=== PATIENT | female | born 1970 | race Caucasian/White ===

== ENCOUNTER 2016-09-03 15:28 | Emergency (ER) | payer SELFPAY ==
[~2016-09-03] VITALS: Ht 152.4 cm; Wt 63.6 kg
[2016-09-03 15:39] VITALS: BP 140/89
--- NOTE | 2016-09-03 15:52 | ED.ADGEN ---
Past History Past Medical History: No Pertinent History Smoking: Non-smoker Alcohol Use: None Drug Use: None Adult General Chief Complaint Chief Complaint Right trapezius pain [facility] HPI Patient is a 46 year old female who presents with 6 week history of pain involving the right trapezius and lateral neck after falling about 2 feet off of a deck landing on her buttocks. She's been receiving adjustments of the chiropractor. Pain sometimes radiates down the arm but she has no weakness numbness or tingling in the right arm or anywhere else for that matter. She does have some low-level low back pain it's been present for many many years and is not changed. Pain in the trapezius is described as mild to moderate dull sometimes cramping. She has been shortness of breath or abdominal pain. Review of Systems Review of Systems Constitutional: Denies fever or chills [] Eyes: Denies change in visual acuity, redness, or eye pain [] HENT: Denies nasal congestion or sore throat [] Respiratory: Denies cough or shortness of breath [] Cardiovascular: No additional information not addressed in HPI [] GI: Denies abdominal pain, nausea, vomiting, bloody stools or diarrhea [] : Denies dysuria or hematuria [] Musculoskeletal: Denies back pain or joint pain [] Integument: Denies rash or skin lesions [] Neurologic: Denies headache, focal weakness or sensory changes [] Endocrine: Denies polyuria or polydipsia [] Current Medications Current Medications Current Medications Medications (Trade) Dose Ordered Sig/[facility] Start Time Stop Time Status Last Admin Dose Admin Tramadol HCl (Ultram) 50 mg 1X ONCE 09/03/16 16:10 09/03/16 16:11 DC 09/03/16 16:10 50 MG Allergies Allergies Allergies Coded Allergies Type Severity Reaction Last Updated Verified Sulfa (Sulfonamide Antibiotics) Allergy Unknown 09/03/16 Yes Physical Exam Physical Exam Constitutional: Well developed, well nourished, no acute distress, non-toxic appearance. [] HENT: Normocephalic, atraumatic, bilateral external ears normal, oropharynx moist, no oral exudates, nose normal. [] Eyes: PERRLA, EOMI, conjunctiva normal, no discharge. [] Neck: Normal range of motion, no tenderness, supple, no stridor. [] Cardiovascular:Heart rate regular rhythm, no murmur [] Lungs & Thorax: Bilateral breath sounds clear to auscultation [] Abdomen: Bowel sounds normal, soft, no tenderness, no masses, no pulsatile masses. [] Skin: Warm, dry, no erythema, no rash. [] Back: No tenderness, no CVA tenderness. [] Extremities: No tenderness, no cyanosis, no clubbing, ROM intact, no edema. [] Neurologic: Alert and oriented X 3, normal motor function, normal sensory function, no focal deficits noted. Equal accounting administrator strength and normal motor function of the upper extremities with extension and flexion of the elbow and wrist. She does have some pain with range of motion with AB duction of the right shoulder but there is no deformity or dislocation clinically. Her vascular intact in the right arm. [] Psychologic: Affect normal, judgement normal, mood normal. [] Current Patient Data Vital Signs Vital Signs Date Time Temp Pulse Resp B/P (MAP) Pulse Ox O2 Delivery O2 Flow Rate FiO2 09/03/16 16:10 20 98 Room Air 09/03/16 15:39 98.5 81 EKG EKG [] Radiology/Procedures Radiology/Procedures [] Course & Med Decision Making Course & Med Decision Making Pertinent Labs and Imaging studies reviewed. (See chart for details) No emergent indication for advanced imaging at this time, or emergent consultation or admission to the hospital. Patient is neurologically intact and is stable for outpatient management follow-up and workup. We will prescribe Ultram and Naprosyn for her pain and recommended follow-up with her PCP for physical therapy. 16 10 PM going to the nurse, the patient refused Ultram because she suddenly remembered an allergy but she did not report before and she refused the Naprosyn prescription and walked out of the emergency department. [] Final Impression Final Impression Right Trapezius strain [] Problems: Dragon Disclaimer Dragon Disclaimer This electronic medical record was generated, in whole or in part, using a voice recognition dictation system. ROLDAN MILES MD Sep 03, 2016 15:52
[2016-09-03] MEDS ORDERED: NAPR375T3 PO (15:56)
[2016-09-03] MEDS ORDERED: TRAM-48 PO (15:56)
[2016-09-03] MEDS ORDERED: traMADol 50 MG TABLET PO ONE (16:10)
== END 2016-09-03 16:18 | disposition home or self-care (01) ==
LOC: ER 15:28
DX: S16.1XXA Strain of muscle, fascia and tendon at neck level, initial encounter (principal); Z88.2 Allergy status to sulfonamides; W17.89XA Other fall from one level to another, initial encounter; Y93.89 Activity, other specified; Y99.8 Other external cause status; Y92.89 Other specified places as the place of occurrence of the external cause
CPT/HCPCS: 99283